=== PATIENT | female | born 1955 | race American Indian/Alaskan Native ===

== ENCOUNTER 2017-08-04 11:31 | Emergency (ER) | payer MEDICAID, OTHER ==
--- NOTE | 2017-08-04 12:34 | RAD ---
HISTORY: Abdominal pain COMPARISON: Comparison chest dated 11/22/2015. TECHNIQUE: Chest PA and lateral FINDINGS: LUNGS: Mild bibasilar atelectasis. Minor minor right apical pleural thickening PLEURA: No significant pleural effusion identified. No pneumothorax apparent. CARDIOVASCULAR: Cardiomegaly. OSSEOUS STRUCTURES: Minor multilevel degenerative spondylosis of the thoracic spine VISUALIZED UPPER ABDOMEN: Normal. OTHER FINDINGS: None. IMPRESSION: No active disease.
[2017-08-04 12:45] LABS: BASO % 0.8 % (0.0-2.0); EOS # 0.1 K/uL (0.0-0.7); EOS % 1.1 % (0.0-4.0); HEMOGLOBIN 15.7 g/dL (11.0-16.0); LYMPH # 2.7 K/uL (1.0-4.3); LYMPH % 41.9 % (20.0-40.0); MEAN CELL VOLUME 93.1 fL (81.0-99.0); MEAN CORPUSCULAR HEMOGLOBIN 31.9 pg (27.0-31.0); MEAN CORPUSCULAR HGB CONC 34.2 g/dL (33.0-37.0); MONO # 0.6 K/uL (0.0-0.8); MONO % 9.3 % (0.0-10.0); NEUT % 46.9 % (50.0-75.0); NRBC % 0.1 % (0.0-2.0); RBC 4.92 Mil/uL (3.80-5.20); RED CELL DISTRIBUTION WIDTH 13.8 % (11.5-14.5); WHITE BLOOD COUNT 6.4 K/uL (4.8-10.8)
[2017-08-04 13:02] LABS: ALBUMIN 4.6 g/dL (3.5-5.0); ALT/SGPT 53 U/L (9-52); AST/SGOT 73 U/L (14-36); BLOOD UREA NITROGEN 12 mg/dL (7-17); CALCIUM 9.5 mg/dl (8.6-10.4); GFR AFRICAN-AMERICAN > 60; GFR NON-AFRICAN AMERICAN > 60; LIPASE 135 U/L (23-300)
--- NOTE | 2017-08-04 13:30 | C.PDOC ---
History Of Present Illness 62-year-old female, presents to the emergency department with complaints of abdominal pain x3 months, intermittent in nature. Denies nausea/vomiting. States she feels gassy. Patient is currently without any pain. Denies any symptoms, chest pain or shortness of breath. Time Seen by Provider: 08/04/17 11:50 Chief Complaint (Nursing): Abdominal Pain History Per: Patient History/Exam Limitations: no limitations Onset/Duration Of Symptoms: Other (3 months) Past Medical History Reviewed: Historical Data, Nursing Documentation, Vital Signs Vital Signs: Last Vital Signs Temp 98.0 F 08/04/17 11:42 Pulse 68 08/04/17 11:42 Resp 18 08/04/17 11:42 BP 138/92 H 08/04/17 11:42 Pulse Ox 100 08/04/17 14:23 - Medical History PMH: Depression (NO MED), Hepatitis (C), HTN, Hypercholesterolemia Surgical History: Cholecystectomy - [facility] Procedures APPLICATION OF SPLINT (11/24/14) Family History: States: No Known Family Hx - Social History Hx Tobacco Use: Yes (quit a couple of weeks ago) Hx Alcohol Use: Yes Hx Substance Use: No - Immunization History Hx Tetanus Toxoid Vaccination: No Hx Influenza Vaccination: No Hx Pneumococcal Vaccination: No Review Of Systems Constitutional: Negative for: Fever Cardiovascular: Negative for: Chest Pain Gastrointestinal: Positive for: Abdominal Pain. Negative for: Nausea, Vomiting Musculoskeletal: Negative for: Back Pain Neurological: Negative for: Weakness, Numbness, Headache, Dizziness Physical Exam - Physical Exam Appears: Non-toxic, No Acute Distress Skin: Normal Color, Warm, Dry, No Rash Head: Normacephalic Eye(s): bilateral: PERRL Nose: Normal Oral Mucosa: Moist Lips: Normal Appearing Neck: Normal ROM Cardiovascular: Rhythm Regular, No Murmur Respiratory: Normal Breath Sounds, No Accessory Muscle Use Gastrointestinal/Abdominal: Soft, No Tenderness Extremity: Normal ROM, No Deformity, No Swelling Neurological/Psych: Oriented x3, Normal Speech ED Course And Treatment - Laboratory Results Result Diagrams: 08/04/17 12:40 08/04/17 12:40 O2 Sat by Pulse Oximetry: 100 (RA) Pulse Ox Interpretation: Normal Medical Decision Making Medical Decision Making: Plan: * EKG * Labs * Chest XR * US Abdomen * Reassess and Disposition Disposition Counseled Patient/Family Regarding: Studies Performed, Diagnosis, Need For Followup, Rx Given - Disposition Referrals: [facility] [Outside] Disposition: HOME/ ROUTINE Disposition Time: 13:29 Condition: STABLE Additional Instructions: follow up with clinic in 2 days call to make an appointment take medications as prescribed return to ER if symptoms worsens or progress Prescriptions: Famotidine [Pepcid] 20 mg PO BID #20 tab Instructions: Acute Abdomen (Belly Pain), Adult (DC) Forms: [employer] [facility] (Turkmen), General Discharge Instructions - Clinical Impression Clinical Impression: Abdominal pain - Scribe Statement The provider has reviewed the documentation as recorded by the Scribe (Haylee Mobley) All medical record entries made by the Scribe were at my direction and personally dictated by me. I have reviewed the chart and agree that the record accurately reflects my personal performance of the history, physical exam, medical decision making, and the department course for this patient. I have also personally directed, reviewed, and agree with the discharge instructions and disposition.
[2017-08-04 14:39] VITALS: BP 127/80; PULSE 63; RESP 16; TEMP 98.5; O2SAT 99
== END 2017-08-04 14:39 | disposition home or self-care (01) ==
LOC: C.ER 11:31
DX: R10.9 Unspecified abdominal pain (principal)
CPT/HCPCS: 71046; 80053; 83690; 84484; 85025; 96374; 99283; C9113